=== PATIENT | male | born 1985 | race Two or more races ===

== ENCOUNTER → 2024-08-03 | Emergency (ER) | payer OTHER ==
[~2024-08-03] VITALS: Ht 167.6 cm; Wt 77.1 kg
[~2024-08-03] MED LIST: KETOROLAC TROMETHAMINE 60 MG VIAL IM ONE
== END | disposition left against medical advice (07) ==
LOC: ER 13:59
DX: Z53.21 Procedure and treatment not carried out due to patient leaving prior to being seen by health care provider (principal)